=== PATIENT | male | born 1995 | race Caucasian/White ===

== ENCOUNTER 2023-08-07 12:56 | Emergency (ER) | payer OTHER ==
[2023-08-07 13:01] VITALS: BP 137/88; PULSE 83; RESP 18; TEMP 98; BMI 23.3
[2023-08-07] MEDS ORDERED: IBUPROFEN 600 MG TABLET (FP) PO ONE (14:09)
[2023-08-07] MEDS: IBUPROFEN 600 MG TABLET (FP) PO ONE (14:11)
== END 2023-08-07 15:32 | disposition home or self-care (01) ==
LOC: JERFT 12:56
DX: S91.201A Unspecified open wound of right great toe with damage to nail, initial encounter (principal); X58.XXXA Exposure to other specified factors, initial encounter
CPT/HCPCS: 73630-TC-RT-FY; 99283-25